=== PATIENT | male | born 1990 | race Caucasian/White ===

== ENCOUNTER 2020-08-29 12:50 | Emergency (ER) | payer SELFPAY ==
[2020-08-29] MEDS ORDERED: MORPHINE 4 MG/ML SYR ONE ×2 (14:04→14:53)
[2020-08-29] MEDS ORDERED: MAGNESIUM SULFATE 1 gm IVPB 1 GM/100 ML BAG IV ONE (14:04)
[2020-08-29] MEDS ORDERED: ONDANSETRON 4 MG/2 ML VIAL ONE (14:04)
[2020-08-29 14:15] LABS: Absolute Lymphocytes (CBC) 1.4 K/uL (0.7-4.9); Basophils % 0.7 % (0-1.3); Hematocrit 39.6 % (39.6-49.0); Lymphocytes % 11.7 % (15.3-44.8); MPV 8.3 fL (7.6-11.3); RBC Red Blood Cell Count 4.56 M/uL (4.33-5.43)
[2020-08-29 14:33] LABS: ALT/SGPT 23 U/L (12-78); AST/SGOT 17 U/L (15-37); Albumin 4.5 g/dL (3.4-5.0); Alkaline Phosphatase 68 U/L (45-117); BUN Blood Urea Nitrogen 18 mg/dL (7-18); Bicarbonate 29 mmol/L (21-32); Bilirubin Direct 0.2 mg/dL (0-0.2); Bilirubin Total 0.8 mg/dL (0.2-1.0); Glucose Level 95 mg/dL (74-106); Lipase 61 U/L (73-393); Potassium 3.9 mmol/L (3.5-5.1); Protein, Total 7.4 g/dL (6.4-8.2); Sodium Level 139 mmol/L (136-145)
[2020-08-29 14:34] LABS: Urine Blood 3+ (NEG); Urine Glucose NEGATIVE (NEG); Urine Protein 1+ (NEG); Urine Specific Gravity >1.030 (1.005-1.030)
--- NOTE | 2020-08-29 14:45 | RAD REPORT ---
EXAM DESCRIPTION: CT - Stone Protocol - 08/29/2020 2:08 pm CLINICAL HISTORY: Flank pain. abd pain, dysuria COMPARISON: CT ABD PELVIS W CONTRAST dated 09/23/2014 TECHNIQUE: Axial images were obtained without oral or IV contrast. Lack of contrast limits solid org an and vascular assessment. The [id number] spans the entirety of the system partially obscuring uppermost abdomen and lung bases. Coronal reformatted images were obtained and reviewed. All CT scans are performed using dose optimization technique as appropriate and may include automated exposure control or mA/KV adjustment according to patient size. FINDINGS: The lower lung jorge are clear. Imaged portions of the liver and spleen show no suspicious findings on non-contrast imaging. The panc reas and adrenal glands are normal. No pathologic lymphadenopathy in the abdomen or pelvis. 2 mm stone is present at the left UVJ with mild left hydronephrosis. Several additional left renal ca lculi are noted most significant in the upper pole left calyx measuring 2-3 mm. No bowel obstruction, free air, free fluid or abscess. Appendectomy. No significant bony abnormality. IMPRESSION: 2 mm left UVJ stone with mild left hydronephrosis. Additional left nephrolithiasis.
[2020-08-29] MEDS ORDERED: KETOROLAC 30 MG/ML INJ ONE (14:54)
[2020-08-29] MEDS ORDERED: TAMSULOSIN 0.4 MG SR CAP ONE (15:46)
--- NOTE | 2020-08-29 16:31 | ER ---
Nurse's Notes [facility] Name: Chandu Osman Age: 30 yrs Sex: Male : 1990 Arrival Date: 08/29/2020 Time: 12:50 Bed 14 Private MD: Diagnosis: Ureterolithiasis without hydronephrosis Presentation: 08/29 13:32 Chief complaint: Patient states: thought he had a UTI, felt urgency and then he took iw some AZO and cipro this morning, but then started having abd pain, vomited once. Coronavirus screen: At this time, the client does not indicate any symptoms associated with coronavirus-19. Ebola Screen: Patient negative for fever greater than or equal to 101.5 degrees Fahrenheit, and additional compatible Ebola Virus Disease symptoms Patient denies exposure to infectious person. Patient denies travel to an Ebola-affected area in the 21 days before illness onset. No symptoms or risks identified at this time. Initial Sepsis Screen: Does the patient meet any 2 criteria? No. Patient's initial sepsis screen is negative. Does the patient have a suspected source of infection? No. Patient's initial sepsis screen is negative. Risk Assessment: Do you want to hurt yourself or someone else? Patient reports no desire to harm self or others. Onset of symptoms was August 29, 2020. 13:32 Method Of Arrival: Ambulatory iw 13:32 Acuity: LEEANNE 3 iw Historical: - Allergies: 13:34 No Known Allergies; iw - Home Meds: 13:34 None [Active]; iw - PMHx: 13:34 None; iw - PSHx: 13:34 Appendectomy; iw - Immunization history:: Adult Immunizations. - Social history:: Smoking status: Patient reports the use of cigarette tobacco products, smokes one-half pack cigarettes per day. - Family history:: not pertinent. - Hospitalizations: : No recent hospitalization is reported. Screenin:37 Abuse screen: Denies threats or abuse. Nutritional screening: No deficits noted. tw2 Tuberculosis screening: No symptoms or risk factors identified. Fall Risk Secondary diagnosis (15 points) impaired mobility. Assessment: 13:40 General: Appears uncomfortable, Behavior is cooperative, appropriate for age, anxious. tw2 Pain: Complains of pain in abdomen and pelvis. Neuro: Level of Consciousness is awake, alert, obeys commands, Oriented to person, place, time, situation. Cardiovascular: Patient's skin is warm and dry. Respiratory: Airway is patent Respiratory effort is even, unlabored, Respiratory pattern is regular, symmetrical. GI: Abdomen is flat, GI: Reports lower abdominal pain, upper abdominal pain. GI: Reports nausea. : Reports burning with urination, urinary frequency. EENT: No signs and/or symptoms were reported regarding the EENT system. Derm: No signs and/or symptoms reported regarding the dermatologic system. Musculoskeletal: Range of motion: intact in all extremities. 14:34 Reassessment: Patient and/or family updated on plan of care and expected duration. Pain tw2 level reassessed. Patient is alert, oriented x 3, equal unlabored respirations, skin warm/dry/pink. Patient states symptoms have not improved. 14:58 Reassessment: Patient appears in no apparent distress at this time. Patient and/or tw2 family updated on plan of care and expected duration. Pain level reassessed. Patient is alert, oriented x 3, equal unlabored respirations, skin warm/dry/pink. provider at bedside at this time. 15:57 Reassessment: Patient appears in no apparent distress at this time. Patient and/or tw2 family updated on plan of care and expected duration. Pain level reassessed. Patient is alert, oriented x 3, equal unlabored respirations, skin warm/dry/pink. 16:39 Reassessment: Patient appears in no apparent distress at this time. Patient and/or tw2 family updated on plan of care and expected duration. Pain level reassessed. Patient is alert, oriented x 3, equal unlabored respirations, skin warm/dry/pink. Patient states feeling better. Patient states symptoms have improved. Vital Signs: 13:32 BP 140 / 92; Pulse 62; Resp 16; Temp 98.3; Pulse Ox 100% on R/A; Weight 58.97 kg; iw Height 5 ft. 8 in. (172.72 cm); 13:34 Pain 10/10; iw 14:34 BP 108 / 62; Pulse 68; Resp 17; Pulse Ox 98% on R/A; tw2 15:56 BP 105 / 69; Pulse 63; Resp 17; Pulse Ox 97% on R/A; tw2 16:38 BP 100 / 55; Pulse 65; Resp 17; Pulse Ox 99% on R/A; tw2 13:32 Body Mass Index 19.77 (58.97 kg, 172.72 cm) iw ED Course: 12:50 Patient arrived in ED. ag5 13:34 Triage completed. iw 13:35 Bed in low position. Call light in reach. Pulse ox on. NIBP on. tw2 13:35 Arm band placed on. tw2 13:36 Morgan Verduzco MD is Attending Physician. rn 13:37 Chloe Nance RN is Primary Nurse. tw2 13:50 Inserted saline lock: 20 gauge in left antecubital area, using aseptic technique. Blood tw2 collected. 14:08 CT Stone Protocol In Process Unspecified. EDMS 16:30 Vaughn Haley MD is Referral Physician. rn 16:39 No provider procedures requiring assistance completed. IV discontinued, intact, tw2 bleeding controlled, No redness/swelling at site. Pressure dressing applied. Administered Medications: 13:50 Drug: Zofran (Ondansetron) 4 mg Route: IVP; Site: left antecubital; tw2 13:52 Drug: morphine 4 mg {Note: RASS 0.} Route: IVP; Site: left antecubital; tw2 14:33 Follow up: Response: No adverse reaction; Pain is unchanged, physician notified tw2 14:34 Follow up: Response: No adverse reaction tw2 13:53 Drug: Magnesium Sulfate 1 grams Route: IVPB; Infused Over: 1 hrs; Site: left tw2 antecubital; 15:10 Follow up: Response: No adverse reaction; IV Status: Completed infusion; IV Intake: tw2 100ml 14:42 Drug: morphine 4 mg {Note: rass o.} Route: IVP; Site: left antecubital; tw2 15:24 Follow up: Response: No adverse reaction; Pain is decreased tw2 15:24 Follow up: Response: No adverse reaction; RASS: Alert and Calm (0) tw2 14:42 Drug: TORadol - Ketorolac 15 mg Route: IVP; Site: left antecubital; tw2 15:24 Follow up: Response: No adverse reaction; Pain is decreased tw2 15:40 Drug: Flomax 0.4 mg Route: PO; tw2 16:39 Follow up: Response: No adverse reaction tw2 Intake: 15:10 IV: 100ml; Total: 100ml. tw2 Output: 13:50 Gastric: 200ml (Emesis); Total: 200ml. tw2 Outcome: 16:30 Discharge ordered by . rn 16:39 Discharged to home ambulatory. tw2 16:39 Condition: stable 16:39 Discharge instructions given to patient, Instructed on discharge instructions, follow up and referral plans. no drinking with medication, no driving heavy equipment, medication usage, Demonstrated understanding of instructions, follow-up care, medications, Prescriptions given X 3. 16:40 Patient left the ED. tw2 Signatures: Dispatcher [employer] EDCristine Griffin, RN RN iw Morgan Verduzco MD MD rn Wise, Tara, RN RN tw2 Lindy Gage ag5 Corrections: (The following items were deleted from the chart) 13:35 13:32 Pulse 62bpm; Resp 16bpm; Pulse Ox 100% RA; Temp 98.3F; 58.97 kg; Height 5 ft. 8 iw in.; BMI: 19.7; iw
--- NOTE | 2020-08-29 16:31 | EDPHYS ---
Physician Documentation [facility] Name: Chandu Osman Age: 30 yrs Sex: Male : 1990 Arrival Date: 08/29/2020 Time: 12:50 Bed 14 Private MD: ED Physician Morgan Verduzco HPI: 08/29 13:51 This 30 yrs old Male presents to ER via Ambulatory with complaints of rn Abdominal Pain. 13:51 The patient presents with abdominal pain in the lower abdomen. Onset: The rn symptoms/episode began/occurred today. The symptoms radiate to groin and testicles. Associated signs and symptoms: Pertinent positives: nausea, Pertinent negatives: blood in stools, chest pain, fever, hematuria. The symptoms are described as achy, intermittent, sharp. Modifying factors: The symptoms are alleviated by nothing, the symptoms are aggravated by nothing. Severity of pain: At its worst the pain was moderate in the emergency department the pain is unchanged. The patient has not experienced similar symptoms in the past. The patient has not recently seen a physician. Reports sudden onset lower abd pain, radiates to groin and testicles, no trauma, no fever, no hx of kidney stones. Reports all day has felt like needs to urinate but cannot. NO hematuria. . Historical: - Allergies: 13:34 No Known Allergies; iw - Home Meds: 13:34 None [Active]; iw - PMHx: 13:34 None; iw - PSHx: 13:34 Appendectomy; iw - Immunization history:: Adult Immunizations. - Social history:: Smoking status: Patient reports the use of cigarette tobacco products, smokes one-half pack cigarettes per day. - Family history:: not pertinent. - Hospitalizations: : No recent hospitalization is reported. ROS: 13:51 Constitutional: Negative for fever, chills, and weight loss, Eyes: Negative for injury, rn pain, redness, and discharge, Neck: Negative for injury, pain, and swelling, Cardiovascular: Negative for chest pain, palpitations, and edema, Respiratory: Negative for shortness of breath, cough, wheezing, and pleuritic chest pain, Abdomen/GI: Negative for diarrhea, and constipation, Back: Negative for injury and pain, : Negative for injury, bleeding, discharge, and swelling, MS/Extremity: Negative for injury and deformity, Skin: Negative for injury, rash, and discoloration, Neuro: Negative for headache, weakness, numbness, tingling, and seizure. Exam: 13:51 Constitutional: This is a well developed, well nourished patient who is awake, alert, rn appears in pain Head/Face: Normocephalic, atraumatic. Cardiovascular: Regular rate and rhythm. No pulse deficits. Respiratory: No increased work of breathing, no retractions or nasal flaring. Abdomen/GI: soft, non-tender, no masses Skin: Warm, dry with normal turgor. Normal color with no rashes, no lesions, and no evidence of cellulitis. MS/ Extremity: Pulses equal, no cyanosis. Neurovascular intact. Full, normal range of motion. Equal circumference. Neuro: Awake and alert, GCS 15 Vital Signs: 13:32 BP 140 / 92; Pulse 62; Resp 16; Temp 98.3; Pulse Ox 100% on R/A; Weight 58.97 kg; iw Height 5 ft. 8 in. (172.72 cm); 13:34 Pain 10/10; iw 14:34 BP 108 / 62; Pulse 68; Resp 17; Pulse Ox 98% on R/A; tw2 15:56 BP 105 / 69; Pulse 63; Resp 17; Pulse Ox 97% on R/A; tw2 16:38 BP 100 / 55; Pulse 65; Resp 17; Pulse Ox 99% on R/A; tw2 13:32 Body Mass Index 19.77 (58.97 kg, 172.72 cm) iw MDM: 13:36 Patient medically screened. rn 16:28 Differential diagnosis: Ureterolithiasis, urinary tract infection. Data reviewed: vital rn signs, nurses notes, lab test result(s), radiologic studies, CT scan, and as a result, I will discharge patient. Counseling: I had a detailed discussion with the patient and/or guardian regarding: the historical points, exam findings, and any diagnostic results supporting the discharge/admit diagnosis, lab results, radiology results, the need for outpatient follow up, to return to the emergency department if symptoms worsen or persist or if there are any questions or concerns that arise at home. Response to treatment: the patient's symptoms have markedly improved after treatment, the patient's condition has returned to base line, the patient is now symptom free, and as a result, I will discharge patient. Special discussion: I discussed with the patient/guardian in detail that at this point there is no indication for admission to the hospital. It is understood, however, that if the symptoms persist or worsen the patient needs to return immediately for re-evaluation. Based on the history and exam findings, there is no indication for further emergent testing or inpatient evaluation. I discussed with the patient/guardian the need to see the urologist for further evaluation of the symptoms. ED course: Pain free, 2mm stone distal ureter at time of CT scan, now has likely passed to bladder. Will dc home. . 08/29 13:43 Order name: CBC with Diff; Complete Time: 14:34 rn 08/29 13:43 Order name: Basic Metabolic Panel; Complete Time: 14:34 rn 08/29 13:43 Order name: Hepatic Function; Complete Time: 14:34 rn 08/29 13:43 Order name: Lipase; Complete Time: 14:34 rn 08/29 14:23 Order name: Urine Dipstick--Ancillary (enter results) em1 08/29 13:42 Order name: CT Stone Protocol; Complete Time: 14:46 rn 08/29 14:23 Order name: Urine Dipstick-Ancillary; Complete Time: 14:36 EDMS 08/29 13:43 Order name: IV Start; Complete Time: 14:06 rn 08/29 13:43 Order name: Urine Dipstick-Ancillary (obtain specimen); Complete Time: 14:06 rn 08/29 13:43 Order name: Labs collected and sent; Complete Time: 13:46 rn Administered Medications: 13:50 Drug: Zofran (Ondansetron) 4 mg Route: IVP; Site: left antecubital; tw2 13:52 Drug: morphine 4 mg {Note: RASS 0.} Route: IVP; Site: left antecubital; tw2 14:33 Follow up: Response: No adverse reaction; Pain is unchanged, physician notified tw2 14:34 Follow up: Response: No adverse reaction tw2 13:53 Drug: Magnesium Sulfate 1 grams Route: IVPB; Infused Over: 1 hrs; Site: left tw2 antecubital; 15:10 Follow up: Response: No adverse reaction; IV Status: Completed infusion; IV Intake: tw2 100ml 14:42 Drug: morphine 4 mg {Note: rass o.} Route: IVP; Site: left antecubital; tw2 15:24 Follow up: Response: No adverse reaction; Pain is decreased tw2 15:24 Follow up: Response: No adverse reaction; RASS: Alert and Calm (0) tw2 14:42 Drug: TORadol - Ketorolac 15 mg Route: IVP; Site: left antecubital; tw2 15:24 Follow up: Response: No adverse reaction; Pain is decreased tw2 15:40 Drug: Flomax 0.4 mg Route: PO; tw2 16:39 Follow up: Response: No adverse reaction tw2 Disposition: 08/29/20 16:30 Discharged to Home. Impression: Ureterolithiasis without hydronephrosis. - Condition is Stable. - Discharge Instructions: Kidney Stones, Dietary Guidelines to Help Prevent Kidney Stones. - Prescriptions for Zofran ODT 4 mg Oral tablet,disintegrating - place 1 tablet by TRANSLINGUAL route every 8 hours As needed; 20 tablet. Tylenol- Codeine #3 300-30 mg Oral Tablet - take 1 tablet by ORAL route every 6 hours As needed; 15 tablet. Flomax 0.4 mg Oral Capsule, Sust. Release 24 hr - take 1 capsule by ORAL route once daily Take only if actively passing kidney stone; 10 capsule. - Medication Reconciliation Form, Thank You Letter, Antibiotic Education, Prescription Opioid Use form. - Follow up: Vaughn Haley MD; When: As needed; Reason: Recheck today's complaints, Re-evaluation by your physician. - Problem is new. - Symptoms have improved. Signatures: Dispatcher [employer] EDMS Cristine Adams RN RN iw Nieto, Roman, MD MD rn Wise, Tara, RN RN tw2 Corrections: (The following items were deleted from the chart) 16:40 16:30 08/29/2020 16:30 Discharged to Home. Impression: Ureterolithiasis without tw2 hydronephrosis. Condition is Stable. Forms are Medication Reconciliation Form, Thank You Letter, Antibiotic Education, Prescription Opioid Use. Follow up: Vaughn Haley; When: As needed; Reason: Recheck today's complaints, Re-evaluation by your physician. Problem is new. Symptoms have improved. rn
[2020-08-29 16:57] VITALS: BP 100/55; O2SAT 99
[2020-08-29 17:05] VITALS: TEMP 97.9
== END 2020-08-29 16:40 | disposition home or self-care (01) ==
LOC: ER 12:50
DX: N20.1 Calculus of ureter (principal); F17.210 Nicotine dependence, cigarettes, uncomplicated
CPT/HCPCS: 36415; 74176; 76377; 80048; 80076; 81003; 83690; 85025; 96365; 96375; 99284; J2405; J3475